=== PATIENT | female | born 1960 | race Caucasian/White ===

== ENCOUNTER 2023-08-05 21:27 | Emergency (ER) | payer OTHER ==
--- NOTE | 2023-08-05 21:34 | ERPHSYRPT ---
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 Patient was merely trying to pull herself up out of her vehicle when she felt a pop sensation followed by pain. Patient was brought into the emergency department. Patient denies chest pain. Patient denies shortness of breath. Occurred: just prior to arrival Method of Injury: other (Pulling herself up out of her car) Quality: aching Severity of Pain-Max: moderate Severity of Pain-Current: moderate Extremities Pain Location: other: right (Right clavicle) Modifying Factors: Improves With: movement Associated Symptoms: none Allergies/Adverse Reactions: codeine Allergy (Verified 08/05/23 21:30) Itching Travel Risk - International Travel Have you traveled outside of the country in past 3 weeks: No - Emerging Infectious Disease Are you exhibiting symptoms associated with any current EIDs: No - Review of Systems Constitutional: No Symptoms Eyes: No Symptoms Ears, Nose, & Throat: No Symptoms Respiratory: No Symptoms Cardiac: No Symptoms Abdominal/Gastrointestinal: No Symptoms Genitourinary Symptoms: No Symptoms Musculoskeletal: Other (Pain right clavicle) Skin: No Symptoms Neurological: No Symptoms Psychological: No Symptoms Endocrine: No Symptoms Hematologic/Lymphatic: No Symptoms Immunological/Allergic: No Symptoms All Other Systems: Reviewed and Negative - Past Medical History Pertinent Past Medical History: Yes - Past Surgical History Past Surgical History: Yes - Nursing Vital Signs Nursing Vital Signs: Initial Vital Signs Temperature 97.5 F 08/05/23 21:28 Pulse Rate 67 08/05/23 21:28 Respiratory Rate 18 08/05/23 21:28 Blood Pressure 169/62 08/05/23 21:28 O2 Sat by Pulse Oximetry 97 08/05/23 21:28 Pain Scale Pain Intensity 7 - Physical Exam General Appearance: mild distress, alert, anxiety Eyes, Ears, Nose, Throat Exam: normal ENT inspection Neck Exam: normal inspection, non-tender, supple Cardiovascular/Respiratory Exam: chest non-tender, no respiratory distress Abdominal Exam: non-tender Back Exam: normal inspection, normal range of motion, No CVA tenderness, No vertebral tenderness Shoulder Exam: normal inspection, non-tender, bone tenderness (Right clavicle), deformity (Right clavicle medial aspect), limited ROM, No no evidence of injury Elbow/Forearm Exam: normal inspection, non-tender, no evidence of injury, limited ROM ([place] to right clavicular pain) Wrist Exam: normal inspection, non-tender, no evidence of injury, normal ROM Hand Exam: normal inspection, non-tender, no evidence of injury, normal ROM Neuro/Tendon Exam: normal sensation, normal motor functions, normal tendon functions, responds to pain, no evidence tendon injury Mental Status Exam: alert, oriented x 3, cooperative Skin Exam: normal color, warm, dry SpO2 Interpretation: normal O2 Delivery: Room Air - Course Nursing assessment & vital signs reviewed: Yes Ordered Tests: Active Orders 24 hr Category Date Time Status Sling Application STAT Care 08/05/23 22:37 Active CLAVICLE Stat Exams 08/05/23 21:44 Taken Medication Summary Discontinued Medications Generic Name Dose Route Start Last Admin Trade Name Freq PRN Reason Stop Dose Admin Morphine Sulfate 6 mg 08/05/23 23:04 Morphine Sulfate 10 Mg/Ml Injection IM 08/05/23 23:05 STAT ONE Ondansetron HCl 4 mg 08/05/23 23:04 Zofran 4 Mg/Udtablet Orally Disintegrating PO 08/05/23 23:05 STAT ONE - Progress Progress: improved, pain not gone completely, re-examined Progress Note: 08/05/23 22:34 My medical decision making and the assignment of low complexity to this patient's medical issues based on review of the patient's past medical history, review the patient's medication list, review the patient drug allergy list, history present illness and physical findings on examination. The workup in this patient includes x-ray of the patient's right clavicle. I interpreted the x-ray of the patient's right clavicle. It appears to be the patient has a medial third pathologic fracture to the right clavicle. No apparent pneumothorax present. 08/05/23 22:35 Informed by the nurse that the patient has morphine tablets at home. We will discuss with the patient what kind of pain control she would like here in the emergency department and place her in a sling. She is then to follow-up with her primary care provider on 08/07/2023 for further evaluation management. 08/05/23 23:06 I discussed pain management with this patient. Patient has Edwards medication at home. She has 11 more days in her current prescription. In addition she uses some form of long-acting morphine at night if needed. She was told to not take her morphine tablet tonight as I am going to provide her with 6 mg morphine intramuscularly +4 mg of Zofran ODT. 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 Resume your Edwards pain pills at home beginning tomorrow, 08/06/2023, after 8 AM. Call your radiation oncologist and your general oncologist on Monday morning, 08/06/2023 to make arranges for follow-up and to discuss the right clavicular fracture management.
[2023-08-05 21:53] VITALS: TEMP 97.5
[2023-08-05] MEDS ORDERED: MORPHINE SULFATE 10 MG/ML ONE (23:17)
[2023-08-05] MEDS ORDERED: ZOFRAN ODT 4 MG ONE (23:18)
[2023-08-05] MEDS: MORPHINE SULFATE 10 MG/ML IM ONE (23:19)
[2023-08-05] MEDS: ZOFRAN ODT 4 MG PO ONE (23:20)
[2023-08-05 23:27] VITALS: BP 159/74; PULSE 74; RESP 16; O2SAT 97
--- NOTE | 2023-08-06 07:07 | XRAY ---
Indication: Pain. Bone cancer. 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 No other bony, articular, or soft tissue abnormalities.
== END 2023-08-05 23:46 | disposition home or self-care (01) ==
LOC: ED 21:27
DX: M84.511A Pathological fracture in neoplastic disease, right shoulder, initial encounter for fracture (principal); C79.51 Secondary malignant neoplasm of bone; C24.0 Malignant neoplasm of extrahepatic bile duct; Z79.891 Long term (current) use of opiate analgesic
CPT/HCPCS: 73000; 96372; 99283; J2270; Q0162